=== PATIENT | female | born 1960 | race Caucasian/White ===

== ENCOUNTER 2020-09-01 10:13 | Outpatient (CLI) | payer OTHER, SELFPAY ==
--- NOTE | ~2020-09-01 | DEXA_ITS ---
Bone Density Report Name: Jacinta Tabor Age: 60 Sex: Female Ethnicity: White Date of : 1960 Indication: postmenopausal; parental hip fracture; Referring Provider: LARRY YAP Study: Bone densitometry was performed. Exam Date: September 01, 2020 Accession number: [id number] Bone Density: Region BMD T-score Z-score Classification AP Spine (L1-L4) 0.933 -1.0 0.3 Normal Femoral Neck (Left) 0.715 -1.2 0.0 Osteopenia Total Hip (Left) 0.924 -0.2 0.8 Normal Total Hip Bilateral Avg 0.942 -0.1 0.9 Normal Femoral Neck (Right) 0.731 -1.1 0.2 Osteopenia Total Hip (Right) 0.959 0.1 1.0 Normal World Health Organization criteria for BMD impression classify patients as: Normal (T-score at or above -1.0), Osteopenia (T-score between -1.0 and -2.5), or Osteoporosis (T-score at or below -2.5). 10-year Fracture Risk(1): Major Osteoporotic Fracture 14% Hip Fracture 0.5% Reported Risk Factors: [place] (), Neck BMD=0.715, BMI=25.1, parental fracture (1) FRAX(R) Version 3.08. Fracture probability calculated for an untreated patient. Fracture probability may be lower if the patient has received treatment. Clinical Information Provided by Patient: Parent has had a hip fracture Has used the following medications: Vitamin D Patient maximum height was 67 Menopause Age: 56 Onset of menses at age 13 Number of children 2 Impression: The patient has low bone mass, based on the Left Femoral Neck T-score. The patient has an estimated ten-year risk of hip fracture of 0.5% and an estimated ten-year risk of major fracture of 14%, based on the WHO FRAX algorithm. The patient has risk factors, including: parental hip fracture. Discussion: BONE DENSITY IS LOW AT ONE OR MORE SKELETAL SITES. This patient's lowest T-score is low at one or more skeletal sites. It meets the World Health Organization's (WHO) criteria for ?low bone mass? (T-score between -1.0 and -2.5). The patient's 10-year risk of fracture as calculated by FRAX is less than the threshold where pharmacological therapy is recommended by the National Osteoporosis Foundation (NOF). However, all treatment decisions require clinical judgment and consideration of individual patient factors, including patient preferences, comorbidities, previous drug use, risk factors not captured in the FRAX model (e.g., frailty, falls, vitamin D deficiency, increased bone turnover, interval significant decline in bone density) and possible under or overestimation of fracture risk by FRAX. The patient should follow a healthful lifestyle (good nutrition with adequate calcium and vitamin D, and appropriate weight-bearing exercise). Follow-Up: Consider repeating this study in 2 to 3 years to reassess this patient's status, or sooner if there is some new clinical indication. Repo
--- NOTE | ~2020-09-01 | MM_ITS ---
EXAMINATION: MM screening ginger BI w elise HISTORY: Screening mammogram TECHNIQUE: Craniocaudal and mediolateral oblique 3-D tomosynthesis images were obtained and synthetic 2-D images were generated. CAD analysis was submitted and interpreted. COMPARISON: 03/29/2016, 09/19/2013 bilateral digital screening mammogram BREAST PARENCHYMAL COMPOSITION: There are scattered areas of fibroglandular density. FINDINGS: There is no evidence of suspicious mass, calcification, or architectural distortion to sugg est malignancy in either breast. There has been no suspicious interval change. IMPRESSION: 1. No mammographic evidence of malignancy. 2. Recommend routine screening mammography in one year. BI-RADS Category 1: Negative Reviewed, dictated and finalized at location A.
== END 2020-09-01 10:14 | disposition home or self-care (01) ==
LOC: ANHIMG 10:15
PROVIDERS: PCP Family Medicine; Visit Provider Family Medicine
DX: Z12.31 Encounter for screening mammogram for malignant neoplasm of breast (principal); Z82.62 Family history of osteoporosis; Z78.0 Asymptomatic menopausal state; M85.852 Other specified disorders of bone density and structure, left thigh; M85.851 Other specified disorders of bone density and structure, right thigh
CPT/HCPCS: 77063; 77067; 77080

== ENCOUNTER 2022-11-25 15:08 | Outpatient (CLI) | payer OTHER, SELFPAY ==
--- NOTE | ~2022-11-25 | MM_ITS ---
EXAMINATION: MM screening ginger BI w elise HISTORY: Screening mammogram TECHNIQUE: Craniocaudal and mediolateral oblique 3-D tomosynthesis images were obtained and synthetic 2-D images were generated. CAD analysis was submitted and interpreted. COMPARISON: 09/01/2020, 03/29/2016 BREAST PARENCHYMAL COMPOSITION: There are scattered areas of fibroglandular density. FINDINGS: No suspicious mass, calcification, or architectural distortion are identified in either bella ast to suggest malignancy. There has been no suspicious interval change. IMPRESSION: 1. No mammographic evidence of malignancy. 2. Recommend routine screening mammography in one year. BI-RADS Category 1: Negative Reviewed, dictated and finalized at location B.
== END 2022-11-25 15:09 | disposition home or self-care (01) ==
LOC: ANHIMG 15:10
PROVIDERS: PCP Family Medicine; Visit Provider Nurse Practitioner Family
DX: Z12.31 Encounter for screening mammogram for malignant neoplasm of breast (principal)
CPT/HCPCS: 77063; 77067

== ENCOUNTER 2023-10-23 10:28 | Day surgery (SDC) | payer OTHER, SELFPAY ==
[2023-09-21 10:08] VITALS: BMI 25.7
[2023-10-10 11:00] VITALS: BMI 24.8
--- NOTE | 2023-10-21 16:42 | PM.HPGS ---
History of Present Illness History of Present Illness Consent: Risks, benefits, and alternatives have been discussed and questions answered. Patient agrees to proceed with procedure. Chief complaint: Neoplasm Screening Narrative: Jacinta Tabor is a 63 year old female who is referred for colon cancer screening. Review of Systems Review of Systems: All systems reviewed & are unremarkable except as noted in HPI and below PMFSH Past Medical History Medical History Adjustment disorder with depressed mood Family hx osteoporosis Surgical History Surgical History History of delivery Family History Family History Mother Family history of lymphoma BCC (basal cell carcinoma of skin) Father Patient's father is Other Depression Family history of cardiovascular disease Hypertension Social History Social History Smoking status: Never smoker Alcohol intake: never Substance use: never Substance use type: does not use Living arrangements: with family Spiritual care concerns: No Meds Home Medications and Allergies Home Medications Medication Instructions Recorded Confirmed Type aspirin 81 mg tablet,delayed 81 mg PO DAILY 03/29/19 10/23/23 History release omega-3 fatty acids 1,000 mg 1,000 mg PO DAILY 03/29/19 10/23/23 History capsule (Fish Oil Concentrate) sertraline 50 mg tablet See Rx Instructions .Route 08/20/21 10/23/23 Rx .COMPLEX #180 tabs cholecalciferol (vitamin D3) 10 10 mcg PO DAILY 05/09/23 10/23/23 History mcg (400 unit) capsule (Vitamin D3) levothyroxine 100 mcg tablet 100 mcg PO DAILY #90 tabs 06/26/23 10/23/23 Rx (Synthroid) amlodipine 5 mg tablet 5 mg PO DAILY #90 tabs 07/26/23 10/23/23 Rx atorvastatin 40 mg tablet 40 mg PO DAILY #90 tabs 08/18/23 10/23/23 Rx fluticasone propionate 50 2 spray intranasal PRN PRN 10/10/23 10/23/23 History mcg/actuation nasal Congestion spray,suspension (Flonase Allergy Relief) bupropion HCl 150 mg 24 hr tablet, See Rx Instructions .Route 10/16/23 10/23/23 Rx extended release .COMPLEX #90 tabs Allergies Allergy/AdvReac Type Severity Reaction Status Date / Time No Known Allergies Allergy Unknown Verified 10/23/23 11:02 Exam Resp: Auscultation: clear to auscultation bilaterally Cardio: Rate: regular rate Rhythm: regular rhythm GI: GI Palp: Yes Soft to palpation and No Tenderness to palpation present (GI) Assessment and Plan Assessment and plan (1) Colon cancer screening: Code(s): Z12.11 - Encounter for screening for malignant neoplasm of colon Status: Acute Assessment and Plan: Colonoscopy with possible biopsy or polypectomy or cautery or injection of substances.
[2023-10-23 11:04] VITALS: BP 153/98; PULSE 64; RESP 15; TEMP 37.2; O2SAT 100
[2023-10-23] MEDS: LACTATED RINGERS 1,000 ML 150 ML IV CONT (11:06)
--- NOTE | 2023-10-23 11:53 | WPDANESEPPF ---
Anes - Initial Pre Proc Eval Procedure: Operation Date: 10/23/23 12:30 Proposed Procedures p Screening Colonoscopy - Chauncey Gaming MD Date/Time: 10/23/23 11:53 Surgeon: Chauncey Gaming MD Pre Op Diagnosis: Neoplasm Screening Patient Data Age: 63 Gender: F Height: 1.7 m Weight: 69.7 kg Last Vital Signs Temp 37.2 C 10/23/23 11:04 Pulse 64 10/23/23 11:04 Resp 15 10/23/23 11:04 BP 153/98 H 10/23/23 11:04 Pulse Ox 100 10/23/23 11:04 O2 Del Method Room Air 10/23/23 11:04 Allergies Allergy/AdvReac Type Severity Reaction Status Date / Time No Known Allergies Allergy Unknown Verified 10/23/23 11:02 Home Medications Medication Instructions Recorded Confirmed Type aspirin 81 mg tablet,delayed 81 mg PO DAILY 03/29/19 10/23/23 History release omega-3 fatty acids 1,000 mg 1,000 mg PO DAILY 03/29/19 10/23/23 History capsule (Fish Oil Concentrate) sertraline 50 mg tablet See Rx Instructions .Route 08/20/21 10/23/23 Rx .COMPLEX #180 tabs cholecalciferol (vitamin D3) 10 10 mcg PO DAILY 05/09/23 10/23/23 History mcg (400 unit) capsule (Vitamin D3) levothyroxine 100 mcg tablet 100 mcg PO DAILY #90 tabs 06/26/23 10/23/23 Rx (Synthroid) amlodipine 5 mg tablet 5 mg PO DAILY #90 tabs 07/26/23 10/23/23 Rx atorvastatin 40 mg tablet 40 mg PO DAILY #90 tabs 08/18/23 10/23/23 Rx fluticasone propionate 50 2 spray intranasal PRN PRN 10/10/23 10/23/23 History mcg/actuation nasal Congestion spray,suspension (Flonase Allergy Relief) bupropion HCl 150 mg 24 hr tablet, See Rx Instructions .Route 10/16/23 10/23/23 Rx extended release .COMPLEX #90 tabs Patient hx anesthesia problems: none Family hx anesthesia problems: none Results Review: All pre-operative results and documents have been reviewed as part of the pre-operative evaluation. [facility] Past Medical History Medical History (Updated 10/23/23 @ 11:53 by Angelo Kerr MD) Adjustment disorder with depressed mood Family hx osteoporosis HTN (hypertension), benign Hypothyroidism (acquired) Surgical History Surgical History History of delivery Family History Family History Mother Family history of lymphoma BCC (basal cell carcinoma of skin) Father Patient's father is Other Depression Family history of cardiovascular disease Hypertension Social History Social History Smoking status: Never smoker Alcohol intake: never Substance use: never Substance use type: does not use Living arrangements: with family Spiritual care concerns: No Anes - Eval Final PreProcedure Day of Procedure 10/23/23 11:53 Patient weight: normal Heart: regular rate and rhythm Lungs: clear to auscultation Airway: Mallampati scale class II Last oral intake: >/= 8 hours ASA classification: II Emergent: no Anesthetic plan: proceed Anesthesia type and monitoring: general GIVS and standard monitoring Results Review: All pre-operative results and documents have been reviewed as part of the pre-operative evaluation. Informed Consent: The patient's anesthetic plan and its attendant risks and benefits were discussed with the patient/family/POA. Questions were solicited and answers provided to the satisfaction of the patient/family/POA.
[2023-10-23 12:11] VITALS: BP 119/76; PULSE 51; RESP 16; O2SAT 99
--- NOTE | 2023-10-23 12:18 | WPDANESPN ---
Anes - Prog Note Post-Op Date/Time: 10/23/23 12:18 Cardiovascular status: normal Respiratory status: normal Airway patency: baseline Mental status: baseline Post-Op hydration status: normal Vital Signs: Last Vital Signs Temp 37.2 C 10/23/23 11:04 Pulse 64 10/23/23 11:04 Resp 15 10/23/23 11:04 BP 153/98 H 10/23/23 11:04 Pulse Ox 100 10/23/23 11:04 O2 Del Method Room Air 10/23/23 11:04 Pain Score (VAS): 0/10 I/O: Intake & Output 10/22/23 10/23/23 10/23/23 23:59 07:59 15:59 Intake Total 200 Balance 200 Patient Feedback: Patient satisfied with anesthetic care.
[2023-10-23 12:21] VITALS: BP 125/82; PULSE 44; RESP 16; O2SAT 98
[2023-10-23 12:31] VITALS: BP 155/83; PULSE 48; RESP 15; O2SAT 100
== END 2023-10-23 12:51 | disposition home or self-care (01) ==
PROVIDERS: PCP Family Medicine; Visit Provider Internal Medicine Gastroenterology
PROC: 0DJD8ZZ Inspection of Lower Intestinal Tract, Via Natural or Artificial Opening Endoscopic (ICD-10-PCS; CPT 45378; principal; 2023-10-23 12:30)
DX: Z12.11 Encounter for screening for malignant neoplasm of colon (principal); K57.30 Diverticulosis of large intestine without perforation or abscess without bleeding; K64.8 Other hemorrhoids
CPT/HCPCS: 45378

== ENCOUNTER 2023-12-01 15:08 | Outpatient (CLI) | payer OTHER, SELFPAY ==
--- NOTE | ~2023-12-01 | MM_ITS ---
EXAMINATION: MM screening ginger BI w elise HISTORY: Screening TECHNIQUE: Craniocaudal and mediolateral oblique 3-D tomosynthesis images were obtained and synthetic 2-D images were generated. CAD analysis was submitted and interpreted. COMPARISON: Comparison to multiple prior studies sequentially, with oldest reviewed study dated 10/2020. BREAST PARENCHYMAL COMPOSITION: Not dense: There are scattered areas of fibroglandular density. FINDINGS: There is no evidence of suspicious mass, calcification, or architectural distortion to sugg est malignancy in either breast. There has been no suspicious interval change. IMPRESSION: 1. No mammographic evidence of malignancy. 2. Recommend routine screening mammography in one year. BI-RADS Category 1: Negative Reviewed, dictated and finalized at location B.
== END 2023-12-01 15:09 | disposition home or self-care (01) ==
LOC: ANHIMG 15:11
PROVIDERS: PCP Family Medicine; Visit Provider Family Medicine
DX: Z12.31 Encounter for screening mammogram for malignant neoplasm of breast (principal)
CPT/HCPCS: 77063; 77067

== ENCOUNTER 2024-06-17 16:59 | Emergency (ER) | payer OTHER, SELFPAY ==
--- NOTE | 2024-06-17 17:04 | ED.UPPEXIN ---
HPI - Extremity Injury (Upper) General Stated Complaint: arm injury Time Seen by Provider: 06/17/24 17:04 Related Data Home Medications ?Medication ?Instructions ?Recorded ?Confirmed ?Last Taken ?Type aspirin 81 mg tablet,delayed 81 mg PO DAILY 03/29/19 10/23/23 Unknown History release omega-3 fatty acids 1,000 mg 1,000 mg PO DAILY 03/29/19 10/23/23 Unknown History capsule (Fish Oil Concentrate) cholecalciferol (vitamin D3) 10 10 mcg PO DAILY 05/09/23 10/23/23 Unknown History mcg (400 unit) capsule (Vitamin D3) fluticasone propionate 50 2 spray intranasal PRN PRN 10/10/23 10/23/23 Unknown History mcg/actuation nasal Congestion spray,suspension (Flonase Allergy Relief) Allergies Allergy/AdvReac Type Severity Reaction Status Date / Time No Known Allergies Allergy Unknown Verified 10/23/23 11:02 [facility] Past Medical History Medical History (Updated 10/23/23 @ 11:53 by Angelo Kerr MD) HTN (hypertension), benign Family hx osteoporosis Adjustment disorder with depressed mood Hypothyroidism (acquired) Surgical History Surgical History History of delivery Family History Family History Mother Family history of lymphoma BCC (basal cell carcinoma of skin) Father Patient's father is Other Depression Family history of cardiovascular disease Hypertension Social History Social History Smoking status: Never smoker Alcohol intake: never Substance use: never Substance use type: does not use Living arrangements: with family Spiritual care concerns: No Discharge Plan Discharge Patient Language: Citizen Of [place] Prescriptions: No Action aspirin 81 mg tablet,delayed release (DR/EC) 81 mg PO DAILY omega-3 fatty acids [Fish Oil Concentrate] 1,000 mg capsule 1,000 mg PO DAILY cholecalciferol (vitamin D3) [Vitamin D3] 10 mcg (400 unit) capsule 10 mcg PO DAILY sertraline 50 mg tablet See Rx Instructions .ROUTE .COMPLEX Qty: 180 3RF Dose Instruction: TAKE 2 TABLETS DAILY Rx Instructions: TAKE 2 TABLETS DAILY bupropion HCl 150 mg tablet extended release 24 hr See Rx Instructions .ROUTE .COMPLEX Qty: 90 1RF Dose Instruction: TAKE 1 TABLET EVERY MORNING Rx Instructions: TAKE 1 TABLET EVERY MORNING. amlodipine 5 mg tablet 5 mg PO DAILY Qty: 90 1RF levothyroxine [Synthroid] 100 mcg tablet 100 mcg PO DAILY Qty: 90 1RF atorvastatin 40 mg tablet 40 mg PO DAILY Qty: 90 1RF fluticasone propionate [Flonase Allergy Relief] 50 mcg/actuation spray,suspension 2 spray intranasal PRN PRN (Reason: Congestion) Rx Instructions: administer into each nostril Follow-up/Referrals: Barak Dickey MD [Primary Care Provider] -
[2024-06-17 17:09] VITALS: BP 161/100; PULSE 72; RESP 18; TEMP 36.6; O2SAT 99
--- NOTE | 2024-06-17 17:09 | ED_ITS ---
HPI - Skin/Abscess/Foreign Bdy General Chief complaint: Wound/Laceration Stated complaint: arm injury Time Seen by Provider: 06/17/24 17:04 Source: patient Mode of arrival: ambulatory Limitations: no limitations History of Present Illness HPI narrative: She patient is a 64-year-old female who presents with laceration to her right forearm that happened approximately 30 minutes prior to arrival. Patient with scrapping metal and went to push metal into a truck and a piece stuck out and had arm. Last tetanus shot was roughly 9 years ago. Denies any numbness, tingling or weakness to hand or fingers. Related Data Home Medications ?Medication ?Instructions ?Recorded ?Confirmed ?Last Taken ?Type aspirin 81 mg tablet,delayed 81 mg PO DAILY 03/29/19 10/23/23 Unknown History release omega-3 fatty acids 1,000 mg 1,000 mg PO DAILY 03/29/19 10/23/23 Unknown History capsule (Fish Oil Concentrate) cholecalciferol (vitamin D3) 10 10 mcg PO DAILY 05/09/23 10/23/23 Unknown History mcg (400 unit) capsule (Vitamin D3) Allergies Allergy/AdvReac Type Severity Reaction Status Date / Time No Known Allergies Allergy Unknown Verified 06/17/24 17:10 Review of Systems 2 Review of Systems: All systems reviewed & are unremarkable except as noted in HPI and below Constitutional: Constitutional: Denies body ache(s), Denies chills, Denies fatigue, Denies fever(s), Denies headache(s), Denies malaise and Denies weakness Eyes: Eyes: Denies blurry vision, Denies irritation and Denies loss of vision ENT: Denies otalgia, Denies headache(s), Denies nasal discharge, Denies sinus pain and Denies sore throat Cardiovascular: Cardiovascular: Denies chest pain, Denies irregular heart rhythm and Denies dyspnea Respiratory: Respiratory: Denies dyspnea Gastrointestinal: Gastrointestinal: Denies abdominal pain, Denies melena, Denies hematochezia, Denies diarrhea, Denies nausea and Denies vomiting Musculoskeletal: Musculoskeletal: Denies back pain, Denies myalgias and Denies arthralgias Integumentary/Breasts: Skin/Breast: Denies pruritus, Denies rash and Reports wounds Neurologic: Denies headache(s), Denies loss of vision and Denies weakness Psychiatric: Psychiatric: Reports no additional psychiatric complaints Endocrine: Endocrine: Denies fatigue PMFSH Past Medical History Medical History HTN (hypertension), benign Family hx osteoporosis Adjustment disorder with depressed mood Hypothyroidism (acquired) Surgical History Surgical History History of delivery Family History Family History Mother Family history of lymphoma BCC (basal cell carcinoma of skin) Father Patient's father is Other Depression Family history of cardiovascular disease Hypertension Social History Social History Smoking status: Never smoker Alcohol intake: never Substance use: never Substance use type: does not use Living arrangements: with family Spiritual care concerns: No Comments At time of signature, agree with nursing past medical, surgical, social and family history. There is no relevant family history pertinent to the presenting complaint. Exam 2 Const: General: cooperative, healthy appearing, comfortable, no acute distress and well nourished Nutritional Appearance: well nourished O rientation/consciousness: patient oriented x3 Limitations: no limitations HENMT: Head: normal to inspection, normocephalic and atraumatic Ears: h earing grossly normal bilaterally and external ears normal Face/Nose/Sinus: N ormal external nose present, normal facial exam and face symmetric Face and sinus: normal facial exam and face symmetric Mouth: Yes lip normal Eyes: General: appearance normal, both eyes and all related structures A lignment and Position: alignment normal and position normal Periorbital: p eriorbital findings normal Eyelids: eyelids normal Pupils: Equal, round and reactive pupils present EOM: EOMs intact bilaterally Neck: Neck: normal visual inspection, full ROM and supple Chest: Chest palpation & inspection: normal inspection of the chest Resp: Effort & Inspection: normal respiratory effort and able to speak in complete sentences Auscultation: clear to auscultation bilaterally Cardio: Rate: regular rate Rhythm: regular rhythm Heart sounds: S1 normal heart sound present and S2 normal heart sound present GI: Inspection: normal to inspection Skin: General skin exam: normal color and no rashes or lesions noted Neuro: General: patient oriented x3 and moves all extremities Cranial nerves: Yes Equal, round and reactive pupils present Speech: normal speech Gait exam (Neuro): Normal gait present Extrem: General: normal to inspection, full ROM and no edema Left upper extremity: shoulder/upper arm inspection abnormal, axillary nerve sensory function normal and normal ROM; no tenderness and elbow/forearm tenderness of the mid-shaft forearm, normal ROM and laceration forearm mid posterolateral linear, involving subcutaneous tissue, with motor nerve function intact and with sensation intact; not actively bleeding, not with foreign body present and not involving muscle tissue; no unusual warmth Elbow/forearm/wrist images: 1. 3 cm laceration, well approximated. No active bleeding Psych: Appearance: grossly normal and well kempt Mental Status: mental status grossly normal Speech and movement: Normal speech and movement present Affect: normal affect Attitude: cooperative Thought process: Normal thought process present Course Course Emergency Course: Patient is aware of diagnosis, understands and agrees to treatment plan. Anticipatory guidance given. Patient agrees to follow-up as directed and is aware of reasons to seek care at the emergency department. Portions of this record may have been created with voice recognition software Level of Care: Express Care Visit Vital Signs Vital signs: Vital Signs Temperature 36.6 C 06/17/24 17:09 Pulse Rate 72 06/17/24 17:09 Respiratory Rate 18 06/17/24 17:09 Blood Pressure 161/100 H 06/17/24 17:09 Pulse Oximetry 99 06/17/24 17:09 Oxygen Delivery Room Air 06/17/24 17:09 Temperature 36.6 C 06/17/24 17:09 Pulse Rate 61 06/17/24 18:22 Respiratory Rate 18 06/17/24 17:09 Blood Pressure 176/94 H 06/17/24 18:22 Pulse Oximetry 99 06/17/24 17:09 Oxygen Delivery Room Air 06/17/24 17:09 Reviewed Procedures Laceration Laceration 1: Date: 06/17/24 Time: 18:00 Site: upper extremity Side (If applicable): right Size (cm): 3 Description: linear Depth: simple, single layer Local Anesthetic: lidocaine 1% Amount of anesthesia used (mL): 2 Pre-repair: wound explored and irrigated extensively ====== Skin Level ====== Skin layer closed with: nylon Size (cm): 5-0 Number of sutures: 4 Technique: simple, interrupted ====== Subcutaneous Layer ====== ====== Muscle Layer ====== ====== Tendon Layer ====== Dressing: Procedure explained to patient. Verbal consent obtained. Wound explored extensively irrigated. Lidocaine instilled. Four sutures placed. Patient tolerated well. Covered with antibiotic ointment and Band-Aid. MDM - Skin/Abscess/Foreign Bdy MDM Narrative Medical decision making narrative: Four sutures placed. Covered with antibiotic ointment and Band-Aid. Tetanus shot updated. Pt well hydrated appearing, in no respiratory distress, hemodynamically stable. Recommend supportive care. The patient is stable at time of discharge the clinical impression was discussed and the patient was given the opportunity to ask questions, which were addressed as completely as possible given the information available at present. Anticipatory guidance and return to care precautions were discussed and the importance of primary care follow-up was stressed and encouraged. The patient voiced understanding of the plan, indications to return, and the need for follow-up. Exam findings show no acute concerns or changes Patient is appropriate for outpatient treatment and follow-up. Differential Diagnosis Differential diagnosis: Likely other (Laceration) Medical Records Attestation: I reviewed the patient's medical records. Discharge Plan Discharge Clinical Impression: Laceration Patient Disposition: Home, Self-Care Condition: Stable Instructions: Laceration (ED) Additional Instructions: Keep wound clean, and dry. Apply antibiotic ointment twice daily. Cover with bandage as needed to prevent contamination. Clean with soap and water twice daily, but do not soak, take baths, or swim until wound is completely healed. Do not clean with hydrogen peroxide. If any signs of infection such as redness, swelling, increasing pain, drainage of purulent discharge, streaks up your extremity develop, seek medical attention immediately. Followup with your primary care provider in [7-10] days for suture removal. After sutures are removed, keep your scar out of the sun. You may use OTC silicone pad and/or scar massage with ointment (for 10-15 min a day) after one month. Talk to your doctor if you think you are developing a keloid. Anastasia blood pressure was elevated above 120/80 today at Urgent Care. This puts you above the threshold for follow up visit with a primary care provider. High blood pressure does not usually cause any symptoms, however it may lead to kidney failure, stroke, heart disease just to name a few if untreated . Many people are anxious when seeing a provider or nurse. As a result, you are not diagnosed with hypertension at this time unless your blood pressure is persistently high at two office visits at least one week apart. Some things that can help lower blood pressure are lifestyle modifications, such as light exercise, decreased salt in diet, and weight loss. It is important to follow up with a PCP about this within 1 week. Patient Language: Luxembourgish Prescriptions: New mupirocin 2 % ointment 1 applic topical BID Qty: 15 0RF No Action aspirin 81 mg tablet,delayed release (DR/EC) 81 mg PO DAILY omega-3 fatty acids [Fish Oil Concentrate] 1,000 mg capsule 1,000 mg PO DAILY cholecalciferol (vitamin D3) [Vitamin D3] 10 mcg (400 unit) capsule 10 mcg PO DAILY sertraline 50 mg tablet See Rx Instructions .ROUTE .COMPLEX Qty: 180 3RF Dose Instruction: TAKE 2 TABLETS DAILY Rx Instructions: TAKE 2 TABLETS DAILY bupropion HCl 150 mg tablet extended release 24 hr See Rx Instructions .ROUTE .COMPLEX Qty: 90 1RF Dose Instruction: TAKE 1 TABLET EVERY MORNING Rx Instructions: TAKE 1 TABLET EVERY MORNING. amlodipine 5 mg tablet 5 mg PO DAILY Qty: 90 1RF levothyroxine [Synthroid] 100 mcg tablet 100 mcg PO DAILY Qty: 90 1RF atorvastatin 40 mg tablet 40 mg PO DAILY Qty: 90 1RF Follow-up/Referrals: Barak Dickey MD [Primary Care Provider] - 3 Days Time of Disposition: 18:22
[2024-06-17] MEDS: TETANUS,DIPHTHERIA,AC PERTUSSIS ADULT (0.5 ML) BOOSTRIX IM (17:29)
[2024-06-17] MEDS: LIDOCAINE 1% LOCAL INJ 2 ML AMPUL INFILTRATE (17:29)
[2024-06-17 18:22] VITALS: BP 176/94; PULSE 61
--- OUTSIDE RECORDS SUMMARY | 2024-06-17 18:50 | XMS_ITS | CONTINUITY OF CARE DOCUMENT ---
Author Name vijay linares Address Unknown Organization [facility] Address [address] [place] [address] Phone [phone] Care Team Providers Care Fisherman Helper Name Role Phone Keiko RICHARDSON, Baljeet Unavailable LARRY YAP MD Unavailable [phone] LARRY YAP MD Unavailable PROBLEMS Condition Status Date Provider Notes Bradycardia active Baljeet Aden MD FAMILY HISTORY OF HEART DISEASE active Dirk Aden MD HTN essential active Baljeet Aden MD Hyperlipidemia active Hawa Cintron RN Hypothyroidism active Baljeet Aden MD Depression, chronic active Baljeet Aden MD Overweight active Baljeet Aden MD ENCOUNTERS Date Type Provider Location Encounter Diag nosis - In-person encounter Office Visit Baljeet Aden MD [facility] BradycardiaFAMILY HISTORY OF HEART DISEASEHTN essentialHyperlipidemiaH ypothyroidismDepression, chronicOverweight VITAL SIGNS Date Observation Value Provider blood pressure, diastolic 98 mm[Hg] Me ruiz [place] blood pressure, systolic 145 mm[Hg] Lizz Garibay blood pressure, diastolic 94 mm[Hg] Dustin Fwoler blood pressure, systolic 159 mm[Hg] Kanchan Fowler pulse rate 58 /min Jamilah Sanchez nson oxygen saturation, oximetry 98 % Jamilah Fowler respiratory rate E&M 17 /min Shell Fowler Body Mass Index (Ratio) 25.24 kg/m2 Hawa Fowler weight E&M 161.2 [lb_av] Jamilah holbrook height E&M 67 [in_i] Jamilah Sanchez nstc ALLERGIES No Known Drug Allergies HISTORY OF MEDICATION USE Medication Status Instructions Dates Provider Indications Com ments SIMVASTATIN 40 MG ORAL TABLET active ONE TAB. DAILY Jamilah Fowler FE TABS 325 (65 Fe) MG ORAL TABLET DELAYED RELEASE active ONE TABLET DAILY Jamilah Fowler FISH OIL CONCENTRATE 1000 MG ORAL CAPSULE active One tab. daily Jamilah Fowler ZOLOFT 50 MG ORAL TABLET active ONE TAB. DAILY Jamilah Fowler ASPIRIN 81 MG ORAL TABLET active ONE TAB. DAILY Jamilah Fowler LEVOTHYROXINE SODIUM 75 MCG ORAL TABLET active ONE TAB. DAILY Jamilah Fowler AMLODIPINE BESYLATE 5 MG ORAL TABLET active ONE TAB. DAILY Jamilah Fowler LISINOPRIL 40 MG ORAL TABLET active ONE TAB. DAILY Jamilah Fowler SOCIAL HISTORY Date Observation Value Provider smoking status Never smoker Delilah urrutia social history reviewed E&M revi ewed - no changes required Baljeet Aden MD smoking status Never smoker Jamilah Ste rosamariaadilia FUNCTIONAL STATUS Date Observation Value Provider periodic limb movement index absent (0) Delilah Garibay FAMILY HISTORY Family Member Condition Full Sister Family History of Hy pertension: Mother Family History of Hy pertension: Father Family History of Co ronary Artery Disease: INSURANCE PROVIDERS Payer name Policy type / Coverage type [place] red democrat ID [facility] Medicaid [id number] TREATMENT PLAN Date Name Performer Cardiology:VERY MILD Baljeet abbott MD Cardiology:159/94 LIKELY DUE TO NERVES SEEING HEART MD Baljeet Aden MD Cardiology:DUE TO ACTIVITY Lilia Aden MD Date Name STR - Routine Complete Echo HISTORY OF PROCEDURES Procedure Date Procedure Name Provider Procedure Notes S tatus Stress EKG Tramaine Montano MD completed EKG Baljeet Aden MD complete d SNOMED-CT: [id number] Current Medications Documented Baljeet Aden MD completed
--- OUTSIDE RECORDS SUMMARY | 2024-06-17 18:50 | XMS_ITS | CONTINUITY OF CARE DOCUMENT ---
Author Name vijay linares Address Unknown Organization [facility] Address [address] [place] [address] Phone [phone] Care Team Providers Care Mail List Librarian Name Role Phone Keiko RICHARDSON, Baljeet Unavailable LARRY YAP MD Unavailable LARRY YAP MD Unavailable PROBLEMS Condition Status Date Provider Notes Overweight active Baljeet Aden MD Depression, chronic active Baljeet Aden MD Hypothyroidism active Baljeet Aden MD Hyperlipidemia active Hawa Cintron RN HTN essential active Baljeet Aden MD FAMILY HISTORY OF HEART DISEASE active Dirk Aden MD Bradycardia active Baljeet Aden MD ENCOUNTERS Date Type Provider Location Encounter Diag nosis - In-person encounter Office Visit Baljeet Aden MD [facility] BradycardiaFAMILY HISTORY OF HEART DISEASEHTN essentialHyperlipidemiaH ypothyroidismDepression, chronicOverweight VITAL SIGNS Date Observation Value Provider blood pressure, diastolic 98 mm[Hg] Me ruiz [place] blood pressure, systolic 145 mm[Hg] Lizz Garibay blood pressure, diastolic 94 mm[Hg] Dustin Fowler blood pressure, systolic 159 mm[Hg] Kanchan Fowler [...] Payer name Policy type / Coverage type [place] red constitution party ID [facility] Medicaid [id number] TREATMENT PLAN Date Name Performer Cardiology:VERY MILD Baljeet abbott MD Cardiology:159/94 LIKELY DUE TO NERVES SEEING HEART MD Baljeet Aden MD Cardiology:DUE TO ACTIVITY Lilia Aden MD Date Name STR - Routine Complete Echo HISTORY OF PROCEDURES Procedure Date Procedure Name Provider Procedure Notes S tatus Stress EKG Tramaine Montano MD completed EKG Baljeet Aden MD complete d SNOMED-CT: [id number] Current Medications Documented Baljeet Aden MD completed
== END 2024-06-17 18:26 | disposition home or self-care (01) ==
PROVIDERS: Emergency Provider Nurse Practitioner Family; PCP Family Medicine
DX: S51.811A Laceration without foreign body of right forearm, initial encounter (principal); W45.8XXA Other foreign body or object entering through skin, initial encounter; Z23 Encounter for immunization; I10 Essential (primary) hypertension; E03.9 Hypothyroidism, unspecified; Z79.82 Long term (current) use of aspirin
CPT/HCPCS: 12002; 90471; 90715; 99213; G0463; J2003